=== PATIENT | male | born 1960 | race Caucasian/White ===

== ENCOUNTER 2019-09-01 13:42 | Outpatient (CLI) | payer OTHER ==
[2019-09-01 18:55] LABS: BASOPHILS # (AUTO) 0.1 10^3/uL (0.0-0.1); BASOPHILS % (AUTO) 0.7 %; EOSINOPHILS # (AUTO) 0.2 10^3/uL (0.0-0.7); EOSINOPHILS % (AUTO) 2.4 %; HGB - HEMOGLOBIN 14.5 g/dL (14.0-18.0); LYMPHOCYTES # (AUTO) 2.1 10^3/uL (1.5-3.5); LYMPHOCYTES % (AUTO) 31.4 %; MEAN CORPUSCULAR HEMOGLOBIN 30.6 pg (27.0-31.0); MEAN CORPUSCULAR HGB CONC 34.2 g/dL (32.0-36.0); MEAN CORPUSCULAR VOLUME 89.5 fL (80.0-94.0); MONOCYTES # (AUTO) 0.5 10^3/uL (0.0-1.0); MONOCYTES % (AUTO) 7.1 %; NEUTROPHILS # (AUTO) 3.9 10^3/uL (1.5-6.6); PLT - PLATELET COUNT 240 10^3/uL (130-450); RED BLOOD COUNT 4.74 10^6/uL (4.70-6.10); RED CELL DISTRIBUTION WIDTH 12.7 % (12.0-15.0); WHITE BLOOD COUNT 6.8 x10^3/uL (4.8-10.8)
[2019-09-01 19:21] LABS: ALBUMIN 4.5 g/dL (3.2-5.5); ALBUMIN/GLOBULIN RATIO 1.5 (1.0-2.2); ALKALINE PHOSPHATASE 44 IU/L (42-121); ALT ALANINE AMINOTRANSFERASE 29 IU/L (10-60); AST ASPARTATE AMINOTRANSFERASE 23 IU/L (10-42); BILIRUBIN,TOTAL 0.6 mg/dL (0.2-1.0); BUN - BLOOD UREA NITROGEN 24 mg/dL (6-20); CALCIUM 9.6 mg/dL (8.5-10.3); CARBON DIOXIDE - CO2 26 mmol/L (21-32); CHLORIDE 104 mmol/L (101-111); CHOLESTEROL 262 mg/dL; CREATININE 1.4 mg/dL (0.6-1.2); GFR - MDRD 52 (>89); GLUCOSE 102 mg/dL (70-100); HDL CHOLESTEROL 44 mg/dL; SODIUM 139 mmol/L (135-145); TOTAL PROTEIN 7.6 g/dL (6.7-8.2)
[2019-09-01 19:54] LABS: LDL CHOLESTEROL,DIRECT 137 mg/dL; LDLD/HDL RATIO 3.1 (<3.6)
== END 2019-09-01 23:59 | disposition home or self-care (01) ==
LOC: LAB.WCP 13:42
PROVIDERS: ATTEND Nurse Practitioner Family
DX: Z85.528 Personal history of other malignant neoplasm of kidney (principal); Z90.5 Acquired absence of kidney; Z82.49 Family history of ischemic heart disease and other diseases of the circulatory system; I10 Essential (primary) hypertension
CPT/HCPCS: 36415; 80053; 80061; 83721; 84443; 85025

== ENCOUNTER 2019-09-14 18:36 | Emergency (ER) | payer OTHER ==
[2019-09-14 19:26] LABS: BASOPHILS # (AUTO) 0.1 10^3/uL (0.0-0.1); BASOPHILS % (AUTO) 0.8 %; EOSINOPHILS # (AUTO) 0.2 10^3/uL (0.0-0.7); EOSINOPHILS % (AUTO) 2.7 %; HGB - HEMOGLOBIN 13.5 g/dL (14.0-18.0); LYMPHOCYTES % (AUTO) 25.9 %; MEAN CORPUSCULAR HEMOGLOBIN 31.3 pg (27.0-31.0); MEAN CORPUSCULAR HGB CONC 35.7 g/dL (32.0-36.0); MEAN CORPUSCULAR VOLUME 87.7 fL (80.0-94.0); MEAN PLATELET VOLUME 9.3 fL (7.4-11.4); MONOCYTES # (AUTO) 0.6 10^3/uL (0.0-1.0); MONOCYTES % (AUTO) 7.4 %; NEUTROPHILS % (AUTO) 62.8 %; PLT - PLATELET COUNT 206 10^3/uL (130-450); RED BLOOD COUNT 4.31 10^6/uL (4.70-6.10); RED CELL DISTRIBUTION WIDTH 12.2 % (12.0-15.0); WHITE BLOOD COUNT 7.9 x10^3/uL (4.8-10.8)
--- NOTE | 2019-09-14 19:31 | ED Physician Documentation ---
PD HPI FOCAL NEURO - Stated complaint Stated Complaint: BP, DIZZINESS, NAUSEA - Chief complaint Chief Complaint: General - History obtained from History obtained from: Patient - History of Present Illness Timing - onset: Today (59-year-old gentleman with history of bicuspid aortic valve and peripheral neuropathy presents with vertigo that started today about an hour and 1/2 to 2 hours ago. He was driving and turning his head on the tile at the time. Since then he has had several episodes usually when he turns his head, he has no vertigo currently. There is no associated headache, shortness of breath, chest pain, pedal edema, weakness, numbness, tingling, diplopia.) Review of Systems Constitutional: denies: Fever, Chills, Myalgias Ears: denies: Loss of hearing, Ear pain Nose: denies: Rhinorrhea / runny nose, Congestion PD PAST MEDICAL HISTORY - Past Medical History Past Medical History: Yes Cardiovascular: Valve disorder Respiratory: None Neuro: None Endocrine/Autoimmune: None GI: None : Other HEENT: None Psych: None Musculoskeletal: None Derm: None Other Past Medical History: kidney cancer - Past Surgical History Past Surgical History: Yes General: Cholecystectomy - Allergies Allergies/Adverse Reactions: Allergies Allergy/AdvReac Type Severity Reaction Status Date / Time No Known Drug Allergies Allergy Verified 09/14/19 18:48 - Social History Does the pt smoke?: No Smoking Status: Never smoker Does the pt drink ETOH?: No - Immunizations Immunizations are current?: Yes - POLST Patient has POLST: No PD ED PE NORMAL - Vitals Vital signs reviewed: Yes - General General: Alert and oriented X 3, No acute distress - HEENT HEENT: PERRL, EOMI, Other (No nystagmus) - Neck Neck: Supple, no meningeal sign, No bony TTP - Extremities Extremities: Other (Normal [id number]-[id number] and tvbj-[id number] testing) - Neuro Neuro: Alert and oriented X 3, 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, No motor deficit, No sensory deficit, Normal speech Results - Vitals Vitals: Vital Signs - 24 hr 09/14/19 09/14/19 09/14/19 18:39 20:07 21:03 Temperature 36.7 C 36.9 C Heart Rate 71 77 88 Respiratory 18 16 16 Rate Blood Pressure 160/113 H 117/75 133/88 H O2 Saturation 97 98 97 Oxygen O2 Source Room air - EKG (time done) 1849 Rate: Rate (enter#) (87) Rhythm: NSR (with pvcs/pacs) [place]: Normal Intervals: Normal [place], Other (lafb) QRS: LVH Ischemia: Normal ST segments Computer interpretation: Agree with computer - Labs Labs: Laboratory Tests 09/14/19 09/14/19 19:19 19:19 WBC 7.9 RBC 4.31 L Hgb 13.5 L Hct 37.8 L MCV 87.7 MCH 31.3 H MCHC 35.7 RDW 12.2 Plt Count 206 MPV 9.3 Neut # (Auto) 5.0 Lymph # (Auto) 2.0 [place] # (Auto) 0.6 Eos # (Auto) 0.2 Baso # (Auto) 0.1 Absolute Nucleated RBC 0.00 Nucleated RBC % 0.0 Sodium 137 Potassium 3.7 Chloride 106 Carbon Dioxide 23 Anion Gap 8.0 BUN 31 H Creatinine 1.5 H Estimated GFR (MDRD) 48 L Glucose 152 H Calcium 8.9 Total Bilirubin 0.6 AST 26 ALT 29 Alkaline Phosphatase 44 Total Protein 7.0 Albumin 4.3 Globulin 2.7 Albumin/Globulin Ratio 1.6 Lipase 83 H - Rads (name of study) CT Head Radiology: EMP read contemporaneously (NAD) PD MEDICAL DECISION MAKING - ED course ED course: Currently he is without vertigo, that is reassuring from the standpoint of peripheral versus central vertigo, if it was central I would expect it to be more persistent, it was episodic and associated with head movement, that is more associated with a peripheral source of his vertigo. I am unable to re-create it though, negative [place]-Hallpike maneuver. No nystagmus. That is less reassuring, but again since he is not currently having vertigo not sure how useful that is. He had no recurrent vertigo while in the department. He ambulated steadily with a normal gait. Head CT was negative. Departure - Departure Disposition: 01 Home, Self Care Clinical Impression: Vertigo Condition: Good Record reviewed to determine appropriate education?: Yes Instructions: ED Vertigo Unspecified Comments: Return if vertigo recurs and is anything more than fleeting. Otherwise follow- up with your primary care physician, next available appointment.
[2019-09-14 19:38] LABS: ALBUMIN 4.3 g/dL (3.2-5.5); ALBUMIN/GLOBULIN RATIO 1.6 (1.0-2.2); BILIRUBIN,TOTAL 0.6 mg/dL (0.2-1.0); CALCIUM 8.9 mg/dL (8.5-10.3); CREATININE 1.5 mg/dL (0.6-1.2)
--- NOTE | 2019-09-14 20:45 | CT Report ---
Reason: vertigo Procedure Date: 09/14/2019 Accession Number: [id number] / [id number] Procedure: CT - HEAD WO CPT Code: Final Report FULL RESULT: EXAM: CT HEAD EXAM DATE: 09/14/2019 08:21 PM. CLINICAL HISTORY: Vertigo. COMPARISON: None. TECHNIQUE: Multiaxial CT images were obtained from the foramen magnum to the vertex. Reformats: Sagittal and coronal. IV contrast: None. In accordance with CT protocol optimization, one or more of the following dose reduction techniques were utilized for this exam: automated exposure control, adjustment of mA and/or KV based on patient size, or use of iterative reconstructive technique. FINDINGS: Parenchyma: No intraparenchymal hemorrhage. No evidence of mass, midline shift, or CT findings of infarction. Hwipple-white differentiation is distinct. Extraaxial Spaces: Normal for age. No subdural or epidural collections identified. Ventricles: Normal in size and position. Sinuses and Orbits: Imaged paranasal sinuses, orbits, and mastoids show no significant abnormality. Bones: No evidence of fracture or calvarial defect. Other: None. IMPRESSION: No significant intracranial abnormality. RADIA
[2019-09-14 21:09] VITALS: BP 133/88
== END 2019-09-14 21:16 | disposition home or self-care (01) ==
LOC: ED 18:36
DX: R42 Dizziness and giddiness (principal); I44.4 Left anterior fascicular block; I49.3 Ventricular premature depolarization; I49.1 Atrial premature depolarization; Q23.1 Congenital insufficiency of aortic valve; G62.9 Polyneuropathy, unspecified
CPT/HCPCS: 36415; 70450; 80053; 83690; 85025; 93005; 99284

== ENCOUNTER 2024-05-31 16:38 | Outpatient (CLI) | payer OTHER | END 2024-05-31 16:39 | disposition critical access hospital (66) | LOC: EMS 16:38 | DX: M54.9 Dorsalgia, unspecified (principal); M79.604 Pain in right leg; M62.830 Muscle spasm of back | CPT/HCPCS: A0425; A0427 ==

== ENCOUNTER 2024-05-31 16:57 | Emergency (ER) | payer OTHER ==
--- NOTE | 2024-05-31 17:37 | ED Physician Documentation ---
PD HPI BACK PAIN - Stated complaint Stated Complaint: BACK PAIN - Chief complaint Chief Complaint: Back Pain - History obtained from History obtained from: Patient - History of Present Illness Timing - details: Abrupt onset Pain level max: 8 Pain level now: 5 Location: Lower, Right, Left Quality: Pain, Spasm Associated symptoms: No: Fever, Weakness, Numbness, Incontinent of urine, Unable to urinate, Hematuria, Incontinent of stool Contributing factors: No: Lifting, Twisting, Trauma, Anticoagulated, Cancer, IVDA, Out of meds Recently seen: Emergency Dept (Seen in an emergency department last week) - Additional information Additional information: Patient is a 63-year-old male with atraumatic back pain. Occurred originally about a week ago, in [facility] from [place]. He had x-rays there that were reportedly negative except for possible mild anterolisthesis L5/S1. He states the pain has been improving on a Medrol Dosepak and Flexeril. He states that today he had a sudden onset of pain again in his back. Does not radiate down the legs. No numbness or tingling. No weakness. No loss of bowel or bladder control. No IV drug use. No fevers. No trauma. Worse with movement, better with rest. He states he did not take the Flexeril today as he was feeling better. Review of Systems Constitutional: denies: Fever, Chills GI: denies: Vomiting, Diarrhea Skin: denies: Rash Musculoskeletal: denies: Neck pain, Back pain Neurologic: denies: Headache PD PAST MEDICAL HISTORY - Past Medical History Past Medical History: Yes Cardiovascular: Valve disorder Respiratory: None Neuro: None Endocrine/Autoimmune: None GI: None : Other HEENT: None Psych: None Musculoskeletal: Chronic back pain Derm: None Other Past Medical History: kidney cancer with right nephrectomy - Past Surgical History Past Surgical History: Yes General: Cholecystectomy Ortho: Other - Present Medications Home Medications: Ambulatory Orders Medication Instructions Recorded Confirmed Atorvastatin Calcium [Lipitor] 80 mg PO DAILY 05/31/24 Cyclobenzaprine [Flexeril] 10 mg PO TID PRN #20 tablet 05/31/24 Gabapentin [Neurontin] 300 mg PO TID #30 cap 05/31/24 Losartan [Cozaar] 25 mg PO DAILY 05/31/24 NIFEdipine [Nifedipine ER] 60 mg PO DAILY 05/31/24 carvediloL [Coreg] 3.125 mg PO BID 05/31/24 predniSONE [Deltasone] 10 mg PO [id number] #42 tab 05/31/24 - Allergies Allergies/Adverse Reactions: Allergies Allergy/AdvReac Type Severity Reaction Status Date / Time codeine AdvReac Nausea Verified 05/31/24 17:06 morphine AdvReac Nausea Verified 05/31/24 17:06 - Social History Does the pt smoke?: No Smoking Status: Never smoker Does the pt drink ETOH?: Yes Substance Use and Type: Marijuana - Immunizations Immunizations are current?: Yes - POLST Patient has POLST: No PD ED PE NORMAL - Vitals Vital signs reviewed: Yes - General General: Alert and oriented X 3, No acute distress - HEENT HEENT: Moist mucous membranes - Neck Neck: Supple, no meningeal sign - Cardiac Cardiac: RRR, Strong equal pulses - Respiratory Respiratory: No respiratory distress, Clear bilaterally - Abdomen Abdomen: Soft, Non tender, Non distended - Back Back: No spinal TTP (No midline tenderness to palpation or percussion. No step- off or deformity.) - Derm Derm: Warm and dry - Extremities Extremities: No edema, No calf tenderness / cord - Neuro Neuro: Alert and oriented X 3, No motor deficit, No sensory deficit, Other (Normal bilateral lower extremity patellar and ankle jerk reflexes. Normal great toe extension bilaterally. no saddle anesthesia) - Psych Psych: Normal mood, Normal affect Results - Vitals Vitals: Vital Signs - 24 hr 05/31/24 05/31/24 05/31/24 17:07 17:16 18:03 Temperature 36.8 C Heart Rate 63 73 61 Respiratory 16 17 16 Rate Blood Pressure 146/91 H 115/71 O2 Saturation 100 95 94 05/31/24 05/31/24 18:55 20:41 Temperature 36.5 C Heart Rate 65 69 Respiratory 16 16 Rate Blood Pressure 129/82 H 129/84 H O2 Saturation 94 96 Oxygen O2 Source Room air - Labs Labs: Laboratory Tests 05/31/24 05/31/24 17:35 17:35 WBC 9.0 RBC 4.56 L Hgb 14.2 Hct 40.9 L MCV 89.7 MCH 31.1 H MCHC 34.7 RDW 12.8 Plt Count 227 MPV 9.0 Neut # (Auto) 5.9 Lymph # (Auto) 2.2 [place] # (Auto) 0.7 Eos # (Auto) 0.2 Baso # (Auto) 0.1 Absolute Nucleated RBC 0.00 Nucleated RBC % 0.0 Sodium 136 Potassium 4.1 Chloride 102 Carbon Dioxide 25 Anion Gap 9.0 BUN 32 H Creatinine 1.3 Estimated GFR (MDRD) 56 L Glucose 100 Calcium 9.8 - Rads (name of study) CT lumbar spine Relevant Findings:: Final report received, See rad report PD Medical Decision Making - ED course Complexity details: reviewed results, re-evaluated patient, considered differential (No cauda equina, no spinal epidural abscess, no fracture, no aortic dissection or evidence of aneursym rupture), d/w patient ED course: Patient was given dexamethasone, volume and Toradol. He was also given a dose of Nubain. Back pain improved. Ambulating well in the emergency department. He is almost out of his Flexeril at home, we will prescribe this again for him. Will be cautious with NSAID use due to his solitary kidney. Had a nephrectomy many years ago for renal cancer. CT scan does not show any acute abnormalities of the lumbar spine. No indication for emergent MRI. No evidence of cauda equina, epidural abscess, no focal neurological deficits. Patient counseled regarding signs and symptoms for which I believe and urgent re-evaluation would be necessary. Patient with good understanding of and agreement to plan and is comfortable going home at this time This document was made in part using voice recognition software. While efforts are made to proofread this document, sound alike and grammatical errors may occur. Departure - Departure Disposition: 01 Home, Self Care Clinical Impression: Spinal stenosis Qualifiers: Spinal region: lumbar Neurogenic claudication status: without neurogenic claudication Qualified Code(s): M48.061 - Spinal stenosis, lumbar region without neurogenic claudication Back pain Qualifiers: Back pain location: low back pain Chronicity: acute Back pain laterality: bilateral Sciatica presence: without sciatica Qualified Code(s): M54.50 - Low back pain, unspecified Condition: Good Instructions: ED Neck Back Pain General Follow-Up: your,doctor for further care [Other] Prescriptions: predniSONE [Deltasone] 10 mg PO [id number] #42 tab Cyclobenzaprine [Flexeril] 10 mg PO TID PRN #20 tablet PRN Reason: Spasms Gabapentin [Neurontin] 300 mg PO TID #30 cap Comments: Your prescriptions were sent to [facility] in [place]. Please follow-up with your doctor for further care. Please return if you worsen. I do recommend gently stretching your neck, leaning forward can sometimes help to relieve pressure. I have included your CT reading below. EXAM: [id number] CT/LSPWO ([id number]) PROCEDURE: Lumbar Spine WO INDICATIONS: low back pain x 1 week TECHNIQUE: Noncontrast 3 mm thick sections acquired from the T12 level to the sacrum. Sagittal and coronal reformats were constructed. For radiation dose reduction, the following was used: automated exposure control, adjustment of mA and/or kV according to patient size. COMPARISON: None. FINDINGS: Image quality: Excellent. Bones: There is normal bony alignment. No acute vertebral body compression fractures. No suspicious lytic or blastic bony lesions. Overall, mild scattered disc bulges. Mild to moderate spinal stenosis is present at L4-5. No significant foraminal narrowing. No pars defects. Soft tissues: No retroperitoneal masses or hematomas. Visualized aorta is normal in caliber. Left nephrectomy. Diverticulosis. IMPRESSION: Scattered disc bulges as well as mild to moderate spinal stenosis at L4-5. Discharge Date/Time: 05/31/24 20:43
[2024-05-31 17:40] LABS: BASOPHILS # (AUTO) 0.1 10^3/uL (0.0-0.1); BASOPHILS % (AUTO) 0.7 %; EOSINOPHILS # (AUTO) 0.2 10^3/uL (0.0-0.7); EOSINOPHILS % (AUTO) 2.2 %; HCT - HEMATOCRIT 40.9 % (42.0-52.0); HGB - HEMOGLOBIN 14.2 g/dL (14.0-18.0); LYMPHOCYTES # (AUTO) 2.2 10^3/uL (1.5-3.5); LYMPHOCYTES % (AUTO) 24.3 %; MEAN CORPUSCULAR HEMOGLOBIN 31.1 pg (27.0-31.0); MEAN CORPUSCULAR HGB CONC 34.7 g/dL (32.0-36.0); MEAN CORPUSCULAR VOLUME 89.7 fL (80.0-94.0); MONOCYTES # (AUTO) 0.7 10^3/uL (0.0-1.0); MONOCYTES % (AUTO) 7.2 %; NEUTROPHILS # (AUTO) 5.9 10^3/uL (1.5-6.6); NEUTROPHILS % (AUTO) 65.3 %; PLT - PLATELET COUNT 227 10^3/uL (130-450); RED BLOOD COUNT 4.56 10^6/uL (4.70-6.10); RED CELL DISTRIBUTION WIDTH 12.8 % (12.0-15.0)
[2024-05-31] MEDS: SODIUM CHLORIDE 0.9% 1,000 ML IV STA (17:46)
[2024-05-31] MEDS: diazePAM INJ 5 MG/ML SYRINGE IVP STA (17:49)
[2024-05-31 17:52] LABS: CALCIUM 9.8 mg/dL (8.5-10.3); CREATININE 1.3 mg/dL (0.6-1.3); POTASSIUM 4.1 mmol/L (3.5-4.5)
[2024-05-31] MEDS: DEXAMETHASONE 10 MG/ML VIAL IVP STA (17:52)
[2024-05-31] MEDS: KETOROLAC 15 MG/ML VIAL IVP STA (17:54)
[2024-05-31] MEDS: NALBUPHINE 10 MG/ML AMP IVP STA (18:51)
--- NOTE | 2024-05-31 19:49 | CT Report ---
PROCEDURE: Lumbar Spine WO INDICATIONS: low back pain x 1 week TECHNIQUE: Noncontrast 3 mm thick sections acquired from the T12 level to the sacrum. Sagittal and coronal refo rmats were constructed. For radiation dose reduction, the following was used: automated exposure co ntrol, adjustment of mA and/or kV according to patient size. COMPARISON: None. FINDINGS: Image quality: Excellent. Bones: There is normal bony alignment. No acute vertebral body compression fractures. No suspiciou s lytic or blastic bony lesions. Overall, mild scattered disc bulges. Mild to moderate spinal stenosi s is present at L4-5. No significant foraminal narrowing. No pars defects. Soft tissues: No retroperitoneal masses or hematomas. Visualized aorta is normal in caliber. Left nephrectomy. Diverticulosis. IMPRESSION: Scattered disc bulges as well as mild to moderate spinal stenosis at L4-5. Reviewed by: Jerica Hong MD on 05/31/2024 7:48 PM PDT Approved by: Jerica Hong MD on 05/31/2024 7:48 PM PDT Station ID: [id number]
[2024-05-31] MEDS: CYCLOBENZAPRINE 10 MG TABLET PO STA (20:27)
[2024-05-31 20:50] VITALS: BP 129/84; O2SAT 96
== END 2024-05-31 20:43 | disposition home or self-care (01) ==
LOC: EDUNIT# → ED 16:57
DX: M48.061 Spinal stenosis, lumbar region without neurogenic claudication (principal); M54.50 Low back pain, unspecified
CPT/HCPCS: 36415; 72131; 80048; 85025; 96374; 96375; 99283; 99285; A9270; J2300